=== PATIENT | female | born 1965 | race Caucasian/White ===

== ENCOUNTER → 2016-11-08 | Outpatient (CLI) | payer BC ==
[~2016-11-08] MED LIST: MULT-506 PO
--- NOTE | 2016-11-08 16:44 | MAMMOGRAPHY REPORT ---
BILATERAL DIGITAL SCREENING MAMMOGRAM TOMOSYNTHESIS WITH CAD: 11/08/2016 CLINICAL HISTORY: Routine screening. Patient has no complaints. TECHNIQUE: Breast tomosynthesis in addition to standard 2D mammography was performed. Current study was also evaluated with a Computer Aided Detection (CAD) system. COMPARISON: Comparison is made to exams dated: 11/05/2015 mammogram, 10/31/2013 mammogram, 11/04/2014 ma mmogram, 10/16/2012 mammogram, 10/25/2011 aspiration, and 10/21/2010 ultrasound - [facility]. BREAST COMPOSITION: The tissue of both breasts is heterogeneously dense, which may obscure small ma sses. FINDINGS: There is fluctuating nodularity within the left breast. No new suspicious mass, architectural design lecturer ural distortion or cluster of microcalcifications is seen. IMPRESSION: ACR BI-RADS CATEGORY 1: NEGATIVE There is no mammographic evidence of malignancy. A 1 year screening mammogram is recommended. The p atient will receive written notification of the results. Approximately 10% of breast cancers are not detected with mammography. A negative mammographic repor t should not delay biopsy if a clinically suggestive mass is present. Marifer Dhaliwal M.D. ay/:11/08/2016 16:32:20 Cathead Operator: Trinh PRINCE(R)(M), [facility] letter sent: Normal 1/2 BI-RADS Code: ACR BI-RADS Category 1: Negative
== END | disposition home or self-care (01) ==
LOC: C.MAMM 11:20
PROVIDERS: ATTEND Obstetrics & Gynecology
DX: Z12.31 Encounter for screening mammogram for malignant neoplasm of breast (principal)

== ENCOUNTER → 2017-11-16 | Outpatient (CLI) | payer BC ==
--- NOTE | 2017-11-16 15:21 | MAMMOGRAPHY REPORT ---
BILATERAL DIGITAL SCREENING MAMMOGRAM TOMOSYNTHESIS WITH CAD: 11/16/2017 CLINICAL HISTORY: Routine screening. Patient has no complaints. TECHNIQUE: Breast tomosynthesis in addition to standard 2D mammography was performed. Current study was also evaluated with a Computer Aided Detection (CAD) system. COMPARISON: Comparison is made to exams dated: 11/08/2016 mammogram, 11/05/2015 mammogram, 11/04/2014 mamm ogram, 10/31/2013 mammogram, 10/31/2013 mammogram, and 10/16/2012 mammogram - [facility]. BREAST COMPOSITION: There are scattered areas of fibroglandular density in both breasts. FINDINGS: There is an oval circumscribed 14 mm mass in the left 12:00 breast, which likely represent s a cyst although targeted ultrasound is recommended for further evaluation. Additionally, there is an area of questionable architectural distortion seen within the left superior breast on the MLO view only, not clearly evident on the cc view although felt to project laterally based on the tomosynthes is localizer bar; recommend spot compression tomosynthesis views and possible breast ultrasound for f urther evaluation. The remainder of both breasts are stable compared to prior exams, without suspicious masses, calcific ations, or areas of architectural distortion noted. IMPRESSION: ACR BI-RADS CATEGORY 0: INCOMPLETE EVALUATION: NEED ADDITIONAL IMAGING EVALUATION Left breast mass and possible left breast architectural distortion, for which additional imaging eval uation is recommended. The patient will be called to schedule an appointment. Approximately 10% of breast cancers are not detected with mammography. A negative mammographic report should not delay biopsy if a clinically suggestive mass is present. Marilyn He M.D. ah/:11/16/2017 11:21:04 Soaping Machine Back Tender: Yamila PRINCE(eNreida)(Luigi), [facility] letter sent: Addl Imaging 0 BI-RADS Code: ACR BI-RADS Category 0: Incomplete Evaluation: Need Additional Imaging Evaluation
== END | disposition home or self-care (01) ==
LOC: C.MAMM 10:23
PROVIDERS: ATTEND Obstetrics & Gynecology
DX: Z12.31 Encounter for screening mammogram for malignant neoplasm of breast (principal); N63.20 Unspecified lump in the left breast, unspecified quadrant

== ENCOUNTER → 2017-11-22 | Outpatient (CLI) | payer BC ==
--- NOTE | 2017-11-22 15:25 | MAMMOGRAPHY REPORT ---
UNILATERAL LEFT DIGITAL DIAGNOSTIC MAMMOGRAM TOMOSYNTHESIS AND TARGETED LEFT ULTRASOUND: 11/22/2017 CLINICAL HISTORY: 52-year-old woman called back from screening mammography for a possible area of arc hitectural distortion in the superior posterior left breast on the MLO view and a lobulated mass in t he 12:00 left breast. TECHNIQUE: Spot compression tomosynthesis left CC and MLO views were obtained. COMPARISON: Comparison is made to exams dated: 11/16/2017 mammogram, 11/08/2016 mammogram, 11/05/2015 [facility] mogram, 11/04/2014 mammogram, 10/31/2013 mammogram, and 10/16/2012 mammogram - [facility]. BREAST COMPOSITION: The tissue of the left breast is heterogeneously dense, which may obscure small masses. FINDINGS: The additional spot compression tomosynthesis images of the left breast demonstrate a pers istent focal area of architectural distortion in the upper outer posterior left breast, 7.4 cm from t he nipple (CC tomosynthesis slice 21/82, and MLO tomosynthesis slice 18/80). Further evaluation with ultrasound was performed for this area of distortion and also a lobulated and partially circumscribe d 17 mm mass in the 12:00 middle one third of the left breast. Targeted ultrasound was performed in the left upper outer quadrant, 12:00 axis and left axilla. In t he 12:00 periareolar left breast, there is an oval parallel circumscribed anechoic benign supple cyst with posterior acoustic enhancement, measuring 13.4 x 7.7 x 15.0 mm. This correlates with the lobul ated and circumscribed mammographic mass in the 12:00 axis and is benign. Incidentally seen in the a djacent 12:00 periareolar left breast is a mixed solid and cystic mass measuring 8 approximately 6.4 x 4.8 x 6.1 mm. Although this could represent a, located cyst, a papillary lesion cannot be complete ly excluded and definitive characterization with ultrasound guided core biopsy is recommended. In th e 2:00 left breast, 6 cm from the nipple, there is an ill-defined hypoechoic lesion within dense tiss ue and evidence of associated architectural distortion real-time scanning. This correlates with the focal architectural distortion seen mammographically. Given the ill-defined nature of the lesions ac curate measurements are difficult but it measures approximately 10.5 x 8.5 x 9.8 mm. This is also in determinate and could represent a radial scar or carcinoma. Ultrasound guided core biopsy is also re commended. Additional scanning performed in the left axilla demonstrates a few morphologically anne l lymph nodes. Cortical thickness is within the range of normal. No suspicious left axillary lympha denopathy identified. IMPRESSION: ACR BI-RADS CATEGORY 4: SUSPICIOUS, TARGETED ULTRASOUND ACR BI-RADS CATEGORY 4: SUSPICIO US 1. Ultrasound-guided core biopsy 2 is recommended in the left breast for an indeterminate mixed gus id and cystic mass versus complicated cyst in the 12:00 periareolar left breast measuring 6.4 mm, and for a 10mm ill-defined area of architectural distortion in the 2:00 left breast, 6 cm from the nippl e, correlating with the focal mammographic distortion. 2. The lobulated and circumscribed 17 mm mass in the 12:00 left breast correlates with an anechoic b enign simple cyst in the 12:00 periareolar left breast on ultrasound. This is benign and no further workup is needed at this time. These results and recommendations were discussed with the patient at the time of the exam. She tenta tively scheduled the left breast biopsies prior to leaving our department. Approximately 10% of breast cancers are not detected with mammography. A negative mammographic report should not delay biopsy if a clinically suggestive mass is present. Marifer Dhalwial M.D. ay/:11/22/2017 14:52:14 Plant Clerk: Trinh SHIRLEY)(Luigi), [facility] letter sent: Abnormal 4/5 BI-RADS Code: ACR BI-RADS Category 4: Suspicious Ultrasound BI-RADS: ACR BI-RADS Category 4: Suspici ous
== END | disposition home or self-care (01) ==
LOC: C.MAMM 13:54
PROVIDERS: ATTEND Obstetrics & Gynecology
DX: N63.21 Unspecified lump in the left breast, upper outer quadrant (principal); R92.8 Other abnormal and inconclusive findings on diagnostic imaging of breast

== ENCOUNTER → 2017-12-06 | Outpatient (CLI) | payer BC ==
--- NOTE | 2017-12-06 10:16 | Discharge Instructions ---
Discharge Instructions Procedure Procedure Date: Dec 06, 2017. Reason for visit: Left Distortion/Left Mass. Discharge Discharge Date: Dec 06, 2017. Discharge Diagnosis: post left breast ultrasound guided core biopsy x 2 Instructions Activity Recommendations: Additional Limitations (see below) Return to School/Work: no limitations Recommended Home Diet: No Limitations Provider Instructions: ACTIVITY RECOMMENDATIONS: * No lifting, pushing, pulling or exercising the affected side for three days. RETURN TO SCHOOL/WORK: * You may return to work/school after the procedure, but do not perform any strenuous activities for 24 to 48 hours. MEDICATIONS: * Tylenol (two 325 mg) every four to six hours if needed for mild pain (if not allergic to Tylenol). DIET: * Resume previous diet. SPECIAL CARE INSTRUCTIONS: * Keep biopsy site dry for 24 hours. May shower after 24 hours, but do not soak (bathe) incision. * May remove Tegaderm (plastic patch) tomorrow AFTER showering. * Leave the steri-strips on for one week. Allow the steri-strips to fall off by themselves. If not off after one week, you may remove them. You may place a Bandaid crosswise over the strips, if desired. * Apply ice 10 minutes on and 10 minutes off as needed. * Wear a bra at bedtime to sleep more comfortably for 2-3 days. * Your referring physician should have the results after approximately 5 to 7 business days. * Call for unusual bleeding, fever, drainage, etc or if you have any questions call [phone] during normal business hours or after hours call Dr Dhaliwal, . FOLLOW UP VISIT: Follow-up with Referring Physician as scheduled. Allergies Coded Allergies: Sulfa Drugs (Verified Allergy, Intermediate, RASH, 09/14/11) Ariana Sen Recommendations: Call your doctor if: * Temperature above 101 degrees * Pain not relieved by pain medicine ordered * There is increased drainage or redness from any incision * You have any unanswered questions or concerns. Your Doctors Instructions noted above were prepared by provider Marifer Dhaliwal. Patient Signature Section: Patient Instructions Signature Page Altagracia Hawk Patient (or Guardian) Signature/Date: I have read and understand the instructions given to me by my caregivers. Caregiver/RN/Doctor Signature/Date: The above-named patient and/or guardian has received patient instructions on this date. + Original Patient Signature Page (only) stays with chart. Please make copy for patient.
--- NOTE | 2017-12-06 15:16 | MAMMOGRAPHY REPORT ---
UNILATERAL LEFT DIGITAL DIAGNOSTIC MAMMOGRAM TOMOSYNTHESIS: 12/06/2017 CLINICAL HISTORY: 2 indeterminate masses in the left breast. There is a mixed solid and cystic mass in the 12:00 axis, and an ill-defined area of architectural distortion in the 2:00 axis, for which ul trasound-guided core needle biopsy 2 was performed in the left breast. Please refer to the report from left breast ultrasound-guided core needle biopsy performed at the [facility] time for full detail. IMPRESSION: POST PROCEDURE IMAGING FOR MARKER PLACEMENT Please refer to the report from left breast ultrasound-guided core needle biopsy performed at the [facility] time for full detail. Approximately 10% of breast cancers are not detected with mammography. A negative mammographic report should not delay biopsy if a clinically suggestive mass is present. Marifer Dhaliwal M.D. ay/:12/06/2017 10:17:52 Conservation Educator: Luz SHIRLEY)(Luigi), [facility] BI-RADS Code: Post Procedure Imaging For Marker Placement
--- NOTE | 2017-12-06 15:16 | MAMMOGRAPHY REPORT ---
ULTRASOUND GUIDED BIOPSY: 12/06/2017 CLINICAL HISTORY: Indeterminate solid versus cystic mass in the left breast at 12:00, an ill-defined area of architectural distortion in the left breast at 2:00. Patient presents for ultrasound-guided core needle biopsy 2. Please refer to the report from left breast ultrasound-guided core needle biopsy performed at the [facility] e time for full detail. IMPRESSION: ULTRASOUND GUIDED BIOPSY Please refer to the report from left breast ultrasound-guided core needle biopsy performed at the [facility] e time for full detail. Marifer Dhaliwal M.D. ay/:12/06/2017 10:18:36 Solution Design And Analysis Manager: Luz PRINCE(Nereida)(M), [facility]
--- NOTE | 2017-12-06 15:16 | MAMMOGRAPHY REPORT ---
THIS REPORT HAS BEEN AMENDED. MULTIPLE ULTRASOUND GUIDED BIOPSIES LEFT BREAST: 12/06/2017 CLINICAL HISTORY: Ill-defined area of architectural distortion in the 2:00 left breast on ultrasound, which correlates with mammographic distortion, and incidentally identified mixed solid and cystic ma ss in the 12:00 left breast. Patient presents for ultrasound-guided core biopsy 2. COMPARISON: Comparison is made to exams dated: 11/22/2017 mammogram, 11/22/2017 ultrasound, and 018 mammogram - [facility]. PATIENT CONSENT: The procedure, risks and benefits were discussed with the patient and informed conse nt was obtained both verbally and in writing. Specific risks to this procedure include: bleeding, in fection, puncture of adjacent structure, nontarget biopsy, sampling error, pain, metal allergy and me dication reaction. PROCEDURE DESCRIPTION: A time out was performed and the left breast was agreed as the site of biopsy. The skin was prepped and draped in the usual sterile fashion. The mixed solid and cystic mass in the 12:00 left breast was chosen as the target for biopsy. Subcutaneous and intraparenchymal 1% buffered lidocaine, with and without epinephrine, was administered as local anesthesia. A skin incision was m jen. Through the incision, for samples were taken with a 14 gauge Achieve biopsy device. A ribbon sh aped metallic marker was placed at the biopsy site. Hemostasis was achieved after manual compression. The patient tolerated the procedure well and there was no immediate complication. Then the ill-defined area of architectural distortion in the 2:00 left breast was identified and chos en as target for biopsy. Additional 1% buffered lidocaine with without epinephrine was administered as local anesthesia. A small skin incision was made. Through the incision, 5 samples were obtained with a 12-gauge Celero biopsy device. A wing-shaped biopsy marker clip was placed at this site. Hem ostasis was achieved after several minutes of manual compression. The patient tolerated the procedur e well and there was no immediate complication. All of the samples were sent to the pathology depart ment in appropriately labeled containers. Postprocedure left CC and ML tomosynthesis images were obtained. A new ring-shaped biopsy microclip is seen in the upper outer posterior left breast, aligning with the mammographic distortion. A ribbo n-shaped clip is seen in the 12:00 anterior left breast. No postbiopsy hematoma identified at either site. COMPARISON: Comparison is made to exams dated: 11/22/2017 mammogram, 11/22/2017 ultrasound, and 018 mammogram - [facility]. An ultrasound guided biopsy using real-time ultrasound was performed for the abnormality located in t he left breast at 2 o'clock middle depth. The skin was prepped in the usual manner. A biopsy needle was placed adjacent to the abnormality under ultrasound guidance. Once the needle was documented to be in the correct location, a specimen was obtained using an automated biopsy gun. The specimen was sent to the laboratory for pathological analysis. A second ultrasound guided biopsy using real-time ultrasound was performed for the abnormality locate d in the left breast at 12 o'clock posterior depth. The skin was prepped in the usual manner. A bio psy needle was placed adjacent to the abnormality under ultrasound guidance. Once the needle was doc umented to be in the correct location, a specimen was obtained using an automated biopsy gun. The sp ecimen was sent to the laboratory for pathological analysis. IMPRESSION: ULTRASOUND GUIDED BIOPSY Status post ultrasound-guided core needle biopsy 2 in the left breast at 12:00 and 2:00. Biopsy mar ker clips were placed at each site. The patient will receive notification of the pathology results from her referring physician. Marifer Dhaliwal M.D. ay/:12/06/2017 12:26:17 Valve Tester: Luz PRINCE(Nereida)(M), [facility] AMENDMENT: 12/08/2017 Marifer Dhaliwal M.D. Pathology results from the ultrasound-guided core biopsy of a mixed solid and cystic mass in the 12:0 0 left breast yielded fibrocystic change and focal duct ectasia. Negative for in situ and invasive c arcinoma. The pathology results are concordant with the imaging appearance and are benign. No furth er workup is needed. Pathology results from the ultrasound-guided core biopsy of a subtle area of architectural distortion in the 2:00 left breast yielded: Microscopic findings consistent with portions of radial scar. "The features are consistent with portions of a large radial scar or complex sclerosing lesion. No atypi jessica hyperplasia or carcinoma is identified. However, the lesion appears relatively large in terms of radial scar and only partially sampled so would recommend complete excision of this lesion to rule o ut a more significant associated process." The pathology results from the 2:00 axis are concordant with the imaging appearance and given the melissa mographic finding of distortion and pathology finding of a radial scar, surgical excision is recommen ded. This biopsy site is marked with a wing-shaped clip.
== END | disposition home or self-care (01) ==
LOC: C.MAMM 09:18
PROVIDERS: ATTEND Obstetrics & Gynecology
DX: N63.20 Unspecified lump in the left breast, unspecified quadrant (principal); N60.12 Diffuse cystic mastopathy of left breast; N60.42 Mammary duct ectasia of left breast